=== PATIENT | male | born 1935 | race Caucasian/White ===

== ENCOUNTER 2016-09-05 06:10 | Day surgery (SDC) | payer MEDICARE, OTHER ==
[~2016-09-05 06:10] MED LIST: BRIMONIDINE 0.2% OPHTH DROPS 5 ML OPTH ONE; BSS/LIDOCAINE/EPINEPHRINE 1 ML SYRINGE IO ONE; CHONDR SULF/HYALURONATE SYRINGE IO ONE; EPINEPHrine 1 MG/ML AMP IVP ONE; PROPARACAINE 0.5% OPHTH DROPS 15 ML OPTH ONE; TIMOLOL 0.5% OPHTH DROPS OPTH ONE; TRIAMCIN/MOXIFLOX/VANCO 1 ML VIAL IO ONE
[2016-09-05] MEDS ORDERED: PROPARACAINE 0.5% OPHTH DROPS 15 ML OPTH ONE ×2 (06:40→07:41)
[2016-09-05] MEDS ORDERED: PHENYLEPHRINE 2.5% OPHTH 2 ML DROPS OPTH ONE (06:40)
[2016-09-05] MEDS ORDERED: CYCLOPENTOLATE 1% OPHTH DROPS 2 ML OPTH ONE (06:40)
[2016-09-05] MEDS ORDERED: KETOROLAC 0.45% OPHTH DROPS OPTH ONE (06:40)
[2016-09-05] MEDS ORDERED: LACTATED RINGERS 500 ML IV ONE (06:50)
[2016-09-05] MEDS ORDERED: CHONDR SULF/HYALURONATE SYRINGE IO ONE (07:40)
[2016-09-05] MEDS ORDERED: BRIMONIDINE 0.2% OPHTH DROPS 5 ML OPTH ONE (07:40)
[2016-09-05] MEDS ORDERED: EPINEPHrine 1 MG/ML AMP IVP ONE ×2 (07:40)
[2016-09-05] MEDS ORDERED: TIMOLOL 0.5% OPHTH DROPS OPTH ONE (07:41)
[2016-09-05] MEDS ORDERED: BSS/LIDOCAINE/EPINEPHRINE 1 ML SYRINGE IO ONE (07:42)
[2016-09-05] MEDS ORDERED: MIDAZOLAM 2 MG/2 ML VIAL IVP ONE (07:45)
[2016-09-05] MEDS ORDERED: TRIAMCIN/MOXIFLOX/VANCO 1 ML VIAL IO ONE (07:46)
[2016-09-05 07:59] VITALS: BP 124/63
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
== END 2016-09-05 06:11 | disposition home or self-care (01) ==
LOC: SDS 06:10
PROVIDERS: ATTEND Ophthalmology
PROC: 08RJ3JZ Replacement of Right Lens with Synthetic Substitute, Percutaneous Approach (ICD-10-PCS; principal; 2016-09-05 07:30)
DX: E11.36 Type 2 diabetes mellitus with diabetic cataract (principal); H25.811 Combined forms of age-related cataract, right eye; E78.00 Pure hypercholesterolemia, unspecified; I10 Essential (primary) hypertension; I25.10 Atherosclerotic heart disease of native coronary artery without angina pectoris; I48.91 Unspecified atrial fibrillation; E03.9 Hypothyroidism, unspecified; E11.40 Type 2 diabetes mellitus with diabetic neuropathy, unspecified; Z82.49 Family history of ischemic heart disease and other diseases of the circulatory system; Z83.3 Family history of diabetes mellitus; Z86.73 Personal history of transient ischemic attack (TIA), and cerebral infarction without residual deficits; Z85.46 Personal history of malignant neoplasm of prostate; Z79.84 Long term (current) use of oral hypoglycemic drugs; Z96.649 Presence of unspecified artificial hip joint; Z87.891 Personal history of nicotine dependence; Z86.711 Personal history of pulmonary embolism
CPT/HCPCS: 66982; A9270; V2632